=== PATIENT | female | born 1975 | race Caucasian/White ===

== ENCOUNTER → 2016-08-24 | Outpatient (CLI) | payer OTHER ==
--- NOTE | 2016-08-24 09:58 | RAD ---
INDICATION: CERVICAL AND LUMBAR PAIN. BULGING DISCS. COMPARISON: None. IMPRESSION: Cervical spine: 4 views obtained without definite acute fracture or dislocation. No prevertebral soft tissue swelling.
--- NOTE | 2016-08-24 10:00 | RAD ---
INDICATION: CERVICAL AND LUMBAR PAIN. BULGING DISCS. COMPARISON: None. IMPRESSION: Lumbar spine: 2 views obtained without definite acute fracture or dislocation. There is evidence of degenerative changes with osteophyte formation at the vertebral body endplates most prominent at T 12 through L2.
== END | disposition home or self-care (01) ==
LOC: RAD 09:08
PROVIDERS: ATTEND Surgery
DX: M25.78 Osteophyte, vertebrae (principal); M51.26 Other intervertebral disc displacement, lumbar region; M47.896 Other spondylosis, lumbar region
CPT/HCPCS: 72040; 72100